=== PATIENT | male | born 2000 | race Caucasian/White ===

== ENCOUNTER 2020-11-20 12:00 | Inpatient (IN) ==
[2020-11-20 13:02] LABS: ABS Lymphocytes 1.9 10^3/ul (1.0-4.8); ABS Monocytes 0.7 10^3/ul (0-0.8); ABS Neutrophils 5.5 10^3/ul (1.5-7.7); Eosinophil % 0.5 %; Hematocrit 47 % (42-52); Hemoglobin 16.2 g/dL (14.0-18.0); Lymphocyte % 22.8 %; Mean Corpuscular HGB Conc 34 g/dL (31-36); Mean Corpuscular Hemoglobin 30 pg (27-31); Mean Corpuscular Volume 88 fL (80-94); Mean Platelet Volume 7.4 fL (7.4-10.4); Platelet Count 355 10^3/uL (150-450); Red Blood Count 5.42 10^6 /uL (4.18-5.48); Red Cell Distribution Width 13 % (10-15); White Blood Count 8.2 10^3/uL (3.5-10.8)
[2020-11-20 13:18] LABS: ALT 15 U/L (7-52); AST 18 U/L (13-39); Albumin/Globulin Ratio 1.7 (1-3); Alkaline Phosphatase 88 U/L (34-104); Anion Gap 7 mmol/L (2-11); BUN/Creatinine Ratio 16.3 (8-20); Blood Urea Nitrogen 16 mg/dL (6-24); CO2 Carbon Dioxide 26 mmol/L (22-32); Calcium 9.8 mg/dL (8.6-10.3); Chloride 104 mmol/L (101-111); EGFR African American 116.8 (>60); EGFR Non-African American 96.6 (>60); Globulin 2.9 g/dL (2-4); Glucose 95 mg/dL (70-100); Potassium 4.1 mmol/L (3.5-5.0); Sodium 137 mmol/L (135-145); Total Protein 7.9 g/dL (6.4-8.9)
[2020-11-20 14:05] LABS: Acetaminophen < 15 mcg/mL; Alcohol, S < 10 mg/dL (<10); Salicylate < 2.50 mg/dL (<30)
[2020-11-20 14:20] LABS: TSH Ultra Thyroid Stim Horm 1.14 mcIU/mL (0.34-5.60)
[2020-11-20] MEDS ORDERED: Al Hydrox/Mg Hydrox/Simet LIQ 30 ML UDC PO PRN (18:03)
[2020-11-21] MEDS: Vitamin THERAPEUTIC TAB PO SCH (09:39)
[2020-11-21 14:32] LABS: Urine Appearance Cloudy; Urine Bilirubin Negative (Negative); Urine Blood Negative (Negative); Urine Color Yellow; Urine Glucose Negative (Negative); Urine Ketones Negative (Negative); Urine Nitrite Negative (Negative); Urine Protein Negative (Negative); Urine Specific Gravity 1.029 (1.010-1.030); Urine Urobilinogen Negative (Negative)
[2020-11-21 16:51] LABS: Urine Benzodiazepine Screen None Detected (None Detect); Urine Cannabinoids Screen Presumptive Positive (None Detect); Urine Opiates Screen None Detected (None Detect)
[2020-11-21 21:52] LABS: Urine Buprenorphine Screen None Detected (None Detect); Urine Fentanyl Screen None Detected (None Detect); Urine Hydrocodone Screen None Detected (None Detect)
[2020-11-22] MEDS: Vitamin THERAPEUTIC TAB PO SCH (09:26)
[2020-11-23 08:27] VITALS: BP 123/73
[2020-11-23] MEDS: Vitamin THERAPEUTIC TAB PO SCH (10:02)
== END 2020-11-23 11:00 | disposition home or self-care (01) | DRG 882 ==
LOC: ED 12:00 → BSU 15:02 → MERGE 15:02 → ED 16:12
PROVIDERS: ADMIT Psychiatry & Neurology Addiction Psychiatry; ATTEND Psychiatry & Neurology Addiction Psychiatry

== ENCOUNTER 2021-01-01 14:36 | Inpatient (IN) ==
[2021-01-01 16:30] LABS: ABS Lymphocytes 1.7 10^3/ul (1.0-4.8); ABS Monocytes 0.7 10^3/ul (0-0.8); ABS Neutrophils 8.6 10^3/ul (1.5-7.7); Eosinophil % 0.3 %; Hematocrit 46 % (42-52); Hemoglobin 15.7 g/dL (14.0-18.0); Lymphocyte % 15.8 %; Mean Corpuscular HGB Conc 34 g/dL (31-36); Mean Corpuscular Hemoglobin 30 pg (27-31); Mean Corpuscular Volume 88 fL (80-94); Mean Platelet Volume 7.3 fL (7.4-10.4); Platelet Count 326 10^3/uL (150-450); Red Blood Count 5.31 10^6 /uL (4.18-5.48); Red Cell Distribution Width 13 % (10-15)
[2021-01-01 16:46] LABS: ALT 13 U/L (7-52); AST 16 U/L (13-39); Albumin 4.9 g/dL (3.2-5.2); Albumin/Globulin Ratio 1.9 (1-3); Alkaline Phosphatase 75 U/L (34-104); Anion Gap 7 mmol/L (2-11); BUN/Creatinine Ratio 16.7 (8-20); Blood Urea Nitrogen 15 mg/dL (6-24); CO2 Carbon Dioxide 25 mmol/L (22-32); Calcium 9.5 mg/dL (8.6-10.3); Chloride 106 mmol/L (101-111); EGFR African American 128.9 (>60); EGFR Non-African American 106.5 (>60); Globulin 2.6 g/dL (2-4); Glucose 92 mg/dL (70-100); Sodium 138 mmol/L (135-145); Total Protein 7.5 g/dL (6.4-8.9)
[2021-01-01 17:09] LABS: Acetaminophen < 15 mcg/mL; Alcohol, S < 10 mg/dL (<10); Salicylate < 2.50 mg/dL (<30)
[2021-01-01 17:23] LABS: TSH Ultra Thyroid Stim Horm 0.49 mcIU/mL (0.34-5.60)
[2021-01-01 17:51] LABS: Urine Appearance Clear; Urine Bilirubin Negative (Negative); Urine Blood Negative (Negative); Urine Color Straw; Urine Glucose Negative (Negative); Urine Ketones Negative (Negative); Urine Nitrite Negative (Negative); Urine Protein Negative (Negative); Urine Specific Gravity 1.016 (1.002-1.030); Urine Urobilinogen Negative (Negative)
[2021-01-01 18:10] LABS: Urine Benzodiazepine Screen None Detected (None Detect); Urine Cannabinoids Screen Presumptive Positive (None Detect); Urine Opiates Screen None Detected (None Detect)
[2021-01-01] MEDS ORDERED: Al Hydrox/Mg Hydrox/Simet LIQ 30 ML UDC PO PRN (20:32)
[2021-01-01] MEDS ORDERED: Nicotine GUM 2MG FRUIT FLAVOR PO PRN (21:00)
[2021-01-02] MEDS: Vitamin THERAPEUTIC TAB PO SCH (10:11)
[2021-01-03] MEDS: Vitamin THERAPEUTIC TAB PO SCH (09:47)
[2021-01-04] MEDS: Vitamin THERAPEUTIC TAB PO SCH (09:20)
[2021-01-05 08:59] LABS: HDL Cholesterol 48.3 mg/dL
[2021-01-05] MEDS: Vitamin THERAPEUTIC TAB PO SCH (10:12)
[2021-01-06] MEDS: Vitamin THERAPEUTIC TAB PO SCH (10:05)
[2021-01-07] MEDS: Vitamin THERAPEUTIC TAB PO SCH (10:12)
[2021-01-08] MEDS: Vitamin THERAPEUTIC TAB PO SCH (10:05)
[2021-01-09 08:29] VITALS: BP 130/85
[2021-01-09] MEDS: Vitamin THERAPEUTIC TAB PO SCH (09:03)
== END 2021-01-09 11:40 | disposition home or self-care (01) | DRG 885 ==
LOC: ED 14:36 → BSU 18:24
PROVIDERS: ADMIT Psychiatry & Neurology Psychiatry; ATTEND Psychiatry & Neurology Psychiatry